=== PATIENT | male | born 1985 | race Caucasian/White ===

== ENCOUNTER 2021-09-28 22:30 | Emergency (ER) | payer OTHER ==
[~2021-09-28] VITALS: Ht 165.1 cm; Wt 70.3 kg
--- NOTE | 2021-09-28 22:40 | NUR ---
PATIENT UNCOOPERATIVE WITH STAFF, YELLING AND SPITTING.
[2021-09-28] MEDS ORDERED: HALOPERIDOL LACTATE INJ 5 MG/ML VIAL ONE (22:47)
[2021-09-28] MEDS ORDERED: diphenhydrAMINE HCL 50 MG/ML VIAL ONE (22:47)
[2021-09-28] MEDS ORDERED: LORAZEPAM INJ 2 MG/ML VIAL ONE (22:48)
--- NOTE | 2021-09-28 22:53 | NUR ---
NELA INCIDENT# [id number] OFFICER JESSICA BLAKE# [id number]
[2021-09-28 23:00] VITALS: BP 139/77
[2021-09-28] MEDS ORDERED: TDAP [DIPH/PERTUSSIS/TET] 0.5 ML VIAL IM ONE (23:00)
[2021-09-28] MEDS ORDERED: LORAZEPAM INJ 2 MG/ML VIAL IV ONE (23:30)
[2021-09-28] MEDS ORDERED: diphenhydrAMINE HCL 50 MG/ML VIAL IM ONE (23:30)
[2021-09-28] MEDS ORDERED: HALOPERIDOL LACTATE INJ 5 MG/ML VIAL IM ONE (23:30)
--- NOTE | 2021-09-29 00:18 | NUR ---
[facility] REDEVELOPMENT SPECIALIST AT PT'S BEDSIDE
--- NOTE | 2021-09-29 00:35 | NUR ---
PT SLEEPING. IN NO ACUTE DISTRESS AT THIS TIME. VSS. ALL NEEDS MET. SAFETY MEASURES CONTINUED.
--- NOTE | 2021-09-29 06:02 | NUR ---
Patient discharged to home in stable condition. Written and verbal after care instructions given. Patient verbalizes understanding of instruction.
== END 2021-09-29 06:02 | disposition home or self-care (01) ==
LOC: ER 22:35
DX: S01.112A Laceration without foreign body of left eyelid and periocular area, initial encounter (principal); F10.129 Alcohol abuse with intoxication, unspecified; R45.6 Violent behavior; Y04.2XXA Assault by strike against or bumped into by another person, initial encounter; Y93.89 Activity, other specified; Y92.89 Other specified places as the place of occurrence of the external cause; Y99.8 Other external cause status; Y90.7 Blood alcohol level of 200-239 mg/100 ml
CPT/HCPCS: 36415; 70450; 80320; 86706; 86803; 87340; 87806; 90471; 90715; 96372 ×2; 96374; 99284; J1200; J1630; J2060; G0480